=== PATIENT | male | born 1985 | race Caucasian/White ===

== ENCOUNTER 2019-09-27 22:28 | Emergency (ER) | payer BC, OTHER ==
[2019-09-27] MEDS ORDERED: NA CHLORIDE 0.9% 1,000 ML ONE (23:10)
[2019-09-27 23:31] LABS: Basophils % 0.3 % (0-1.3); Hematocrit 43.9 % (39.6-49.0); Lymphocytes % 15.2 % (15.3-44.8); MPV 7.8 fL (7.6-11.3); RBC Red Blood Cell Count 4.71 M/uL (4.33-5.43)
[2019-09-28 00:24] LABS: Albumin 3.6 g/dL (3.4-5.0); Bilirubin Total 0.4 mg/dL (0.2-1.0); Potassium 3.7 mmol/L (3.5-5.1); Protein, Total 6.9 g/dL (6.4-8.2)
[2019-09-28] MEDS ORDERED: OSELTAMIVIR 75 MG CAP ONE (00:26)
--- NOTE | 2019-09-28 00:35 | ER ---
Nurse's Notes [facility] Name: Scott Wray Age: 33 yrs Sex: Male : 1985 Arrival Date: 09/27/2019 Time: 22:31 Bed 24 Private MD: Diagnosis: Acute fever. Flu symptoms Presentation: 09/27 22:42 Presenting complaint: Patient states: fever, body aches, nonproductive cough started sr5 this afternoon. Tmax 101.5, Tylenol taken at approx 730pm. Denies sick contacts or travel outside the country. Breath sounds CTA, skin warm/dry/nc. Denies ear pain. Denies difficulty swallowing. Transition of care: patient was not received from another setting of care. Onset of symptoms was September 27, 2019. Risk Assessment: Do you want to hurt yourself or someone else? Patient reports no desire to harm self or others. Initial Sepsis Screen: Does the patient meet any 2 criteria? HR > 90 bpm. Does the patient have a suspected source of infection? No. Patient's initial sepsis screen is negative. Care prior to arrival: Medication(s) given: Tylenol. 22:42 Method Of Arrival: Ambulatory sr5 22:42 Acuity: TRACI 3 sr5 Triage Assessment: 22:46 General: Appears ill, Behavior is calm, cooperative. Neuro: Level of Consciousness is sr5 awake, alert, obeys commands, Oriented to person, place, time, situation, Gait is steady, Speech is normal. Cardiovascular: Heart tones S1 S2 present Patient's skin is warm and dry. Respiratory: Reports cough that is non-productive, Respiratory effort is even, unlabored, Respiratory pattern is regular, symmetrical, Breath sounds are clear bilaterally. GI: No signs and/or symptoms were reported involving the gastrointestinal system. : No signs and/or symptoms were reported regarding the genitourinary system. Derm: No signs and/or symptoms reported regarding the dermatologic system. Musculoskeletal: No signs and/or symptoms reported regarding the musculoskeletal system. Historical: - Allergies: 22:46 No Known Allergies; sr5 - Home Meds: 22:46 lisinopril 10 mg Oral tab [Active]; sr5 - PMHx: 22:46 Hypertension; sr5 - PSHx: 22:46 None; sr5 - Social history:: Smoking status: Patient/guardian denies using tobacco, never smoked. - Ebola Screening: : Patient negative for fever greater than or equal to 101.5 degrees Fahrenheit, and additional compatible Ebola Virus Disease symptoms. Screenin:50 Abuse screen: Denies threats or abuse. Nutritional screening: No deficits noted. sr5 Tuberculosis screening: No symptoms or risk factors identified. Fall Risk No fall in past 12 months (0 pts). No secondary diagnosis (0 pts). IV access (20 points). Ambulatory Aid- None/Bed Rest/Nurse Assist (0 pts). Gait- Normal/Bed Rest/Wheelchair (0 pts) Mental Status- Oriented to own ability (0 pts). Total Ro Fall Scale indicates No Risk (0-24 pts). Assessment: 23:50 Reassessment: see triage assessment. Pain: Denies pain. sr5 Vital Signs: 22:46 BP 139 / 104; Pulse 107; Resp 18; Temp 99.8(O); Pulse Ox 95% on R/A; Weight 96.16 kg sr5 (R); Height 5 ft. 9 in. (175.26 cm) (R); 23:50 BP 136 / 99; Pulse 94; Resp 18; Pulse Ox 100% on R/A; Pain 0/10; sr5 22:46 Body Mass Index 31.31 (96.16 kg, 175.26 cm) sr5 Vitals: 23:50 Cardiac Rhythm Assessment Regular Sinus rhythm. sr5 ED Course: 22:31 Patient arrived in ED. ds1 22:32 ReseckIsra fiore, RN is Primary Nurse. sr5 22:45 Triage completed. 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 23:07 Nick Rizvi MD is Attending Physician. pkl 23:44 Lab(s) recollected, by me, sent to lab. rv 23:50 Patient has correct armband on for positive identification. Bed in low position. Call sr5 light in reach. Side rails up X 1. 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 Pulse ox on. NIBP on. Lights dimmed. 23:50 Initial lab(s) drawn, by me, sent to lab. Inserted saline lock: 22 gauge in left sr5 antecubital area, using aseptic technique. Blood collected. Missed attempt(s): 20 gauge in right antecubital area. 09/28 00:26 No provider procedures requiring assistance completed. intact, bleeding controlled, No rv redness/swelling at site. Pressure dressing applied. Administered Medications: 09/27 23:34 Drug: NS 0.9% 1000 ml Route: IV; Rate: 1 bolus; Site: left antecubital; sr5 09/28 00:51 Follow up: IV Status: Completed infusion; IV Intake: 1000ml sr5 00:25 Drug: Tamiflu 75 mg Route: PO; rv 00:50 Follow up: Response: Medication administered at discharge. sr5 Intake: 00:51 IV: 1000ml; Total: 1000ml. sr5 Outcome: 00:25 Discharge ordered by . dorothy 00:26 Discharged to home ambulatory. rv 00:26 Condition: good 00:26 Discharge instructions given to patient, Instructed on discharge instructions, follow up and referral plans. medication usage, Demonstrated understanding of instructions, follow-up care, medications, Prescriptions given X 1. 00:27 Patient left the ED. rv Signatures: Nick Rizvi MD MD pkl Jane Simpson ds1 Isra Fernandez RN RN sr5 Terry Sheehan RN RN rv
--- NOTE | 2019-09-28 00:37 | EDPHYS ---
Physician Documentation [facility] Name: Scott Wray Age: 33 yrs Sex: Male : 1985 Arrival Date: 09/27/2019 Time: 22:31 Bed 24 Private MD: ED Physician Nick Rizvi HPI: 09/27 23:30 This 33 yrs old Male presents to ER via Ambulatory with complaints of Fever, pkl Chills. 23:30 The patient or guardian reports cough, described as mild, with no sputum, flu symptoms, pkl low-grade fever, myalgias. Onset: The symptoms/episode began/occurred today. Associated signs and symptoms: Pertinent negatives: chest pain. Historical: - Allergies: 22:46 No Known Allergies; sr5 - Home Meds: 22:46 lisinopril 10 mg Oral tab [Active]; sr5 - PMHx: 22:46 Hypertension; sr5 - PSHx: 22:46 None; sr5 - Social history:: Smoking status: Patient/guardian denies using tobacco, never smoked. - Ebola Screening: : Patient negative for fever greater than or equal to 101.5 degrees Fahrenheit, and additional compatible Ebola Virus Disease symptoms. ROS: 23:30 Eyes: Negative for injury, pain, redness, and discharge. pkl 23:30 ENT: Positive for sore throat. 23:30 Neck: Negative for stiffness. 23:30 Cardiovascular: Negative for chest pain. 23:30 Respiratory: Positive for cough, with no reported sputum. 23:30 Abdomen/GI: Negative for abdominal pain, nausea, vomiting, and diarrhea. 23:30 Back: Negative for acute changes. 23:30 : Negative for urinary symptoms. 23:30 MS/extremity: Negative for acute changes. 23:30 Skin: Negative for rash. 23:30 Neuro: Negative for altered mental status. Exam: 23:30 Head/Face: Normocephalic, atraumatic. Eyes: Pupils equal round and reactive to light, pkl extra-ocular motions intact. Lids and lashes normal. Conjunctiva and sclera are non-icteric and not injected. Cornea within normal limits. Periorbital areas with no swelling, redness, or edema. 23:30 ENT: Posterior pharynx: erythema, that is mild. 23:30 Neck: Exam negative for nuchal rigidity. 23:30 Chest/axilla: Exam negative for acute changes. 23:30 Cardiovascular: Rate: tachycardic, actual rate is 107 bpm, Rhythm: regular. 23:30 Respiratory: the patient does not display signs of respiratory distress, Respirations: normal, Breath sounds: are clear throughout. 23:30 Abdomen/GI: Bowel sounds: normal, Palpation: abdomen is soft and non-tender, in all quadrants. 23:30 Back: Exam negative for acute changes. 23:30 : Exam negative for acute changes. 23:30 Musculoskeletal/extremity: Exam is negative for acute changes. 23:30 Skin: Exam negative for rash. 23:30 Neuro: Orientation: is normal, Mentation: is normal, Cranial nerves: grossly normal, Motor: is normal. Vital Signs: 22:46 BP 139 / 104; Pulse 107; Resp 18; Temp 99.8(O); Pulse Ox 95% on R/A; Weight 96.16 kg sr5 (R); Height 5 ft. 9 in. (175.26 cm) (R); 23:50 BP 136 / 99; Pulse 94; Resp 18; Pulse Ox 100% on R/A; Pain 0/10; sr5 22:46 Body Mass Index 31.31 (96.16 kg, 175.26 cm) sr5 MDM: 23:07 Patient medically screened. pkl 09/28 00:24 Data reviewed: vital signs, nurses notes, lab test result(s). pkl 09/27 23:05 Order name: CBC with Diff sr5 09/27 23:05 Order name: Comprehensive Metabolic Panel; Complete Time: 00:27 sr5 09/27 23:05 Order name: Flu; Complete Time: 00:12 sr5 09/27 23:29 Order name: Strep pkl 09/27 23:29 Order name: Group A Streptococcus Rapid Sc; Complete Time: 00:12 EDMS 09/27 23:35 Order name: Manual Differential EDMS Administered Medications: 09/27 23:34 Drug: NS 0.9% 1000 ml Route: IV; Rate: 1 bolus; Site: left antecubital; sr5 09/28 00:51 Follow up: IV Status: Completed infusion; IV Intake: 1000ml sr5 00:25 Drug: Tamiflu 75 mg Route: PO; rv 00:50 Follow up: Response: Medication administered at discharge. sr5 Disposition: 09/28/19 00:25 Discharged to Home. Impression: Acute fever. Flu symptoms. - Condition is Stable. - Prescriptions for Tamiflu 75 mg Oral Capsule - take 1 tablet by ORAL route every 12 hours for 5 days; 10 tablet. - Medication Reconciliation Form, Thank You Letter, Antibiotic Education, Prescription Opioid Use form. - Follow up: Private Physician; When: 2 - 3 days; Reason: Re-evaluation by your physician. - Problem is new. - Symptoms have improved. Signatures: Dispatcher [employer] EDNick Allred MD MD pkl Isra Fernandez RN RN sr5 Terry Sheehan RN RN rv Corrections: (The following items were deleted from the chart) 00:27 00:25 09/28/2019 00:25 Discharged to Home. Impression: Acute fever. Flu symptoms. rv Condition is Stable. Forms are Medication Reconciliation Form, Thank You Letter, Antibiotic Education, Prescription Opioid Use. Follow up: Private Physician; When: 2 - 3 days; Reason: Re-evaluation by your physician. Problem is new. Symptoms have improved. pkl
[2019-09-28 00:55] VITALS: TEMP 99.8
[2019-09-28 00:56] VITALS: BP 136/99; O2SAT 100
[2019-09-28 00:59] LABS: Blood Morphology Comment NOT SEEN (NOT SEEN); Platelet Estimate ADEQ
== END 2019-09-28 00:27 | disposition home or self-care (01) ==
LOC: ER 22:28
DX: R50.9 Fever, unspecified (principal)
CPT/HCPCS: 87070; 85025; 36415; 87081; 80053; 87804 ×2; 96360; 99284; J7030